=== PATIENT | female | born 1940 | race Caucasian/White ===

== ENCOUNTER → 2016-08-08 10:05 | Day surgery (SDC) | payer MEDICARE ==
[~2016-08-08 10:05] MED LIST: Acetaminophen TAB* 325 MG PO PRN; Buffered Lidocaine 1% SYRIN* 3 ML/SYR SYRINGE INTRADERM ONE; Cyclopentolate 1% OPTH.SOL* 2 ML BTL ONE; Flurbiprofen 0.03% OPTH.SOL* 2.5 ML BTL ONE; Lidocaine 1% MPF* 2 ML VIAL ONE; Midazolam* 1 MG/ML 2 ML VIAL (2 MG) ONE; Neomycin/Polymy/Dex OPHTH.OIN* 3.5 GM ONE; Phenylephrine 2.5% OPTH.SOL* 2 ML BTL ONE; Tetracaine 0.5% OPTH.SOL 4 ML* 1 DROP BTL ONE; Tropicamide 1% OPTH.SOL* BTL ONE; fentaNYL* 50 MCG/ML 2 ML VIAL (100 MCG VIAL) ONE
[2016-08-08 12:34] VITALS: BP 149/72
--- NOTE | 2016-08-08 16:38 | OP ---
DATE OF OPERATION/DATE OF DICTATION: 08/08/2016 - [facility] DATE OF : 1940. SURGEON: Dr. Fabio Doulgas. DESIGN TECH: None. ANESTHESIOLOGIST: Edinson Saunders MD ANESTHESIA: Topical with intravenous sedation. PRE-OP DIAGNOSIS: Cataract, left eye. POST-OP DIAGNOSIS: Cataract, left eye. OPERATIVE PROCEDURE: Phacoemulsification and cataract extraction with posterior chamber intraocular lens implant, left eye. COMPLICATIONS: None. BLOOD LOSS: None. DESRIPTION OF PROCEDURE: The patient was brought to the operating room and received a small amount of intravenous sedation. A drop of Tetracaine was placed in her left eye. She was prepped and draped in the usual sterile fashion for ophthalmic surgery and attention was directed to the left eye where a speculum was placed. A paracentesis was created at the 5 o'clock position and 0.1 cc of 1 percent preservative-free Lidocaine was injected into the anterior chamber followed by DisCoVisc. The eye was digitally stabilized while a 2.75 mm keratome was used to create a triplanar clear corneal incision at the 3 o'clock position. A continuous curvilinear capsulorrhexis was created with a cystotome and Utrata forceps. BSS on a cannula was used to hydrodissect the lens from the capsule. Phacoemulsification was performed in a divide-and- conquer technique to create four fragments which were removed. Residual cortical material was removed with irrigation and aspiration. DisCoVisc was used to inflate the capsular bag and an AUOOTO 19.0 diopter lens was folded and inserted into the capsular bag. DisCoVisc was removed using irrigation and aspiration. BSS on a cannula was used to hydrate the corneal stroma and seal the wound. At the end of the case the pupil was round and the lens was centered. The eye was of normal pressure and the wound was water tight. The speculum was removed and topical Maxitrol ointment was placed on the surface of the eye. The eye was closed, patched and shielded and the patient was sent to the recovery room in stable condition with post operative instructions and follow-up appointment given. [id number]/CPS #: [id number] [facility]ie
== END | disposition home or self-care (01) ==
LOC: OREAST 10:05
PROVIDERS: ATTEND Ophthalmology
DX: H25.12 Age-related nuclear cataract, left eye (principal); I10 Essential (primary) hypertension
CPT/HCPCS: J2250; J3010; V2632

== ENCOUNTER → 2016-08-15 07:28 | Day surgery (SDC) | payer MEDICARE ==
[~2016-08-15 07:28] MED LIST changes: -Cyclopentolate 1% OPTH.SOL* 2 ML BTL ONE; -Flurbiprofen 0.03% OPTH.SOL* 2.5 ML BTL ONE; -Lidocaine 1% MPF* 2 ML VIAL ONE; -Midazolam* 1 MG/ML 2 ML VIAL (2 MG) ONE; +Midazolam* 1 MG/ML 5 ML VIAL (5 MG) ONE; -Neomycin/Polymy/Dex OPHTH.OIN* 3.5 GM ONE; -Phenylephrine 2.5% OPTH.SOL* 2 ML BTL ONE; -Tetracaine 0.5% OPTH.SOL 4 ML* 1 DROP BTL ONE; -Tropicamide 1% OPTH.SOL* BTL ONE
[2016-08-15 09:45] VITALS: BP 139/79
--- NOTE | 2016-08-16 00:42 | OP ---
DATE OF OPERATION: 08/15/16 [facility] DATE OF : 38 SURGEON: Dr. Fabio Douglas. RETAIL ASSOCIATE MANAGER BILINGUAL: None. ANESTHESIOLOGIST: Edinson Saunders MD ANESTHESIA: Topical with intravenous sedation. PRE-OP DIAGNOSIS: Cataract, right eye. POST-OP DIAGNOSIS: Cataract, right eye. OPERATIVE PROCEDURE: Phacoemulsification and cataract extraction with posterior chamber intraocular lens implant, right eye. COMPLICATIONS: None. BLOOD LOSS: None. DESCRIPTION OF PROCEDURE: The patient was brought to the operating room and received a small amount of intra-venous sedation. A drop of Tetracaine was placed in her right eye. She was prepped and draped in the usual sterile fashion for ophthalmic surgery and attention was directed to the right eye where a speculum was placed. A paracentesis was created at the 11 o'clock position and 0.1 cc of 1 percent preservative-free Lidocaine was injected into the anterior chamber followed by DisCoVisc. The eye was digitally stabilized while a 2.75 mm keratome was used to create a triplanar clear corneal incision at the 9 o'clock position. A continuous curvilinear capsulorrhexis was created with a cystotome and Utrata forceps. BSS on a cannula was used to hydrodissect the lens from the capsule. Phacoemulsification was performed in a divide-and- conquer technique to create four fragments which were removed. Residual cortical material was removed with irrigation and aspiration. DisCoVisc was used to inflate the capsular bag and an AU00T0 17.5 diopter lens was folded and inserted into the capsular bag. DisCoVisc was removed using irrigation and aspiration. BSS on a cannula was used to hydrate the corneal stroma and seal the wound. At the end of the case the pupil was round and the lens was centered. The eye was of normal pressure and the wound was water tight. The speculum was removed and topical Maxitrol ointment was placed on the surface of the eye. The eye was closed, patched and shielded and the patient was sent to the recovery room in stable condition with post operative instructions and follow-up appointment given. [id number]/CPS #: [id number] MTDD
== END | disposition home or self-care (01) ==
LOC: OREAST 07:28
PROVIDERS: ATTEND Ophthalmology
DX: H25.11 Age-related nuclear cataract, right eye (principal); I10 Essential (primary) hypertension
CPT/HCPCS: J2250; J3010; V2632

== ENCOUNTER 2017-04-29 18:59 | Emergency (ER) | payer MEDICARE ==
[2017-04-29] MEDS ORDERED: NS 0.9% 1000 ML* 2,000 ML IV ONE (19:23)
[2017-04-29] MEDS ORDERED: Ondansetron INJ* 2 MG/ML VIAL IV ONE (19:23)
[2017-04-29 20:08] LABS: Hematocrit 28 % (35-47); Hemoglobin 9.8 g/dl (12.0-16.0); Mean Corpuscular HGB Conc 35 g/dl (31-36); Mean Corpuscular Hemoglobin 32 pg (27-31); Mean Corpuscular Volume 91 fL (80-97); Mean Platelet Volume 7 um3 (7.4-10.4); Red Blood Count 3.12 10^6/ul (4.0-5.4); Red Cell Distribution Width 13 % (10.5-15); White Blood Count 11.3 10^3/ul (3.5-10.8)
--- NOTE | 2017-04-29 20:14 | RAD ---
Indication: Syncope, seizure. CT of the cervical spine was obtained in the axial plane. Ventricular structures are midline. No midline shift is noted. The extra-axial spaces are unremarkable. There is no evidence of intracranial mass or hemorrhage. No other high or low density lesions are identified. 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 Mastoid air cells and paranasal sinuses are otherwise unremarkable. IMPRESSION: No intracranial mass or hemorrhage is noted.
--- NOTE | 2017-04-29 20:14 | RAD ---
Indication: Syncope. Single frontal view of the chest performed at 1948 hours was reviewed. No prior study is available for comparison. No mediastinal shift is noted. Heart is of normal size and configuration. Lung chapman appear clear. IMPRESSION: NO ACTIVE CARDIOPULMONARY DISEASE IS NOTED.
[2017-04-29 20:29] LABS: Albumin 3.8 g/dL (3.2-5.2); C Reactive Protein 15.37 mg/L (< 5.00); Calcium 9.2 mg/dL (8.6-10.3); EGFR African American 102.7 (>60); EGFR Non-African American 79.8 (>60); Globulin 2.3 g/dL (2-4); Magnesium 1.6 mg/dL (1.9-2.7); Total Bilirubin 0.6 mg/dL (0.2-1.0); Total Protein 6.1 g/dL (6.4-8.9)
[2017-04-29 20:39] LABS: Troponin I 0.02 ng/mL (<0.04)
[2017-04-29 20:53] LABS: TSH (Thyroid Stimulating Horm) 3.46 mcIU/mL (0.34-5.60)
[2017-04-29] MEDS ORDERED: Pantoprazole IV* 40 MG IV ONE (21:52)
[2017-04-29] MEDS ORDERED: Magnesium Sulfate 2 GM IV* 2 GM/50 ML BAG IVPB ONE (21:52)
[2017-04-29] MEDS ORDERED: Pantoprazole IV* 80 MG in NS 0.9% 100 ML* 100 ML IVPB SCH (22:00)
[2017-04-29] MEDS ORDERED: NS 0.9% 1000 ML* 1,000 ML IV SCH (22:00)
--- NOTE | 2017-04-29 22:17 | ED ---
Leander Sheehan Tecjoon, scribed for Puneet Donovan MD on 04/29/17 at 1925 . Syncope/Near Syncope - HPI Summary HPI Summary: This patient is a 76 year old female BIBA to [facility] accompanied by family with a chief complaint of syncope since around an hour ago. Patients granddaughter states that she was sitting in her chair when she passed out and underwent convulsions and could not speak. After recovering, she underwent a second episode. Symptoms aggravated by nothing. Symptoms alleviated by nothing Patient additionally reports nausea, fever, diaphoresis, abd pain, diarrhea, dry heaves , weakness, lightheadedness. Patient denies headache, sore throat, bodyache, rhinorrhea, SOB, vomiting. Patient notes that she had a similar episode yesterday as well. - History Of Current Complaint Chief Complaint: EDSyncope Time Seen by Provider: 04/29/17 19:10 Hx Obtained From: Patient Onset/Duration: Sudden Onset Timing: Intermittent Episode Lasting - couple minutes Context: Witnessed - by granddaughter Aggravating Factor(s): Nothing Alleviating Factor(s): Nothing Associated Signs And Symptoms: Negative - headache, sore throat, bodyache, rhinorrhea, SOB, vomiting, Other - nausea, fever, diaphoresis, abd pain, diarrhea, dry heaves, weakness, lightheadedness Frequency: Episodes x___ - 2 - Allergies/Home Medications Allergies/Adverse Reactions: Allergies Allergy/AdvReac Type Severity Reaction Status Date / Time Adhesive Tape Allergy Hives Verified 08/15/16 07:50 Latex Allergy Hives Verified 08/15/16 07:50 Meperidine [From Demerol HCl] Allergy Hives Verified 08/15/16 07:50 Penicillins [PCN] Allergy Hives Verified 08/15/16 07:50 vaccines with egg proteins Allergy Hives Uncoded 08/15/16 07:50 PMH/Surg Hx/FS Hx/Imm Hx Previously Healthy: No Cardiovascular History: Reports: Hx Hypertension - CONTROLLED WITH MEDICATION GI History: Reports: Hx Hiatal Hernia - RESOLVED Musculoskeletal History: Reports: Hx Arthritis - RIGHT KNEE Sensory History: Reports: Hx Cataracts, Hx Contacts or Glasses - READING GLASSES Denies: Hx Hearing Aid Opthamlomology History: Reports: Hx Cataracts, Hx Contacts or Glasses - READING GLASSES Psychiatric History: Reports: Hx Depression - CONTROLLED WITH MEDICATION - Cancer History Hx Chemotherapy: Yes - BREAST Hx Radiation Therapy: Yes - BREAST - Surgical History Surgery Procedure, Year, and Place: 1976 HYSTERECTOMY. 1995 LUMPECTOMY Hx Anesthesia Reactions: No Infectious Disease History: No Infectious Disease History: Denies: Traveled Outside the [place] in Last 30 Days - Family History Known Family History: Positive: Other - CVA Negative: Cardiac Disease - CHF - Social History Lives: With Family Alcohol Use: Weekly Alcohol Amount: 2 GLASSES A WEEK Hx Substance Use: No Substance Use Type: Reports: None Hx Tobacco Use: No Smoking Status (MU): Never Smoked Tobacco Review of Systems Positive: Fever, Skin Diaphoresis Negative: Sore Throat, Nasal Discharge Negative: Shortness Of Breath Positive: Abdominal Pain, Diarrhea, Nausea, Other - dry heaves. Negative: Vomiting Musculoskeletal: Negative - bodyache Neurological: Other - lightheadedness Positive: Weakness, Syncope. Negative: Headache All Other Systems Reviewed And Are Negative: Yes Physical Exam - Summary Physical Exam Summary: General: well-appearing, no pain distress Skin: warm, color reflects adequate perfusion, dry Head: normal Eyes: EOMI, DENY ENT: normal Neck: supple, nontender Respiratory: CTA, breath sounds present Cardiovascular: RRR Abdomen: soft, nontender Bowel: present Musculoskeletal: normal, strength/ROM intact Neurological: normal, sensory/motor intact, A&O x3 Psychological: affect/mood appropriate Triage Information Reviewed: Yes Vital Signs On Initial Exam: Initial Vitals Temp Pulse Resp BP Pulse Ox 96.9 F 80 16 134/71 99 04/29/17 19:11 04/29/17 19:11 04/29/17 19:11 04/29/17 19:11 04/29/17 19:11 Vital Signs Reviewed: Yes Diagnostics - Vital Signs Vital Signs Temp Pulse Resp BP Pulse Ox 04/29/17 19:11 96.9 F 80 16 134/71 99 - Laboratory Lab Results: Lab Results 04/29/17 04/29/17 04/29/17 Range/Units 19:55 19:55 19:55 WBC 11.3 H (3.5-10.8) 10^3/ul RBC 3.12 L (4.0-5.4) 10^6/ul Hgb 9.8 L (12.0-16.0) g/dl Hct 28 L (35-47) % MCV 91 (80-97) fL MCH 32 H (27-31) pg MCHC 35 (31-36) g/dl RDW 13 (10.5-15) % Plt Count 267 (150-450) 10^3/ul MPV 7 L (7.4-10.4) um3 Neut % (Auto) 82.9 (38-83) % Lymph % (Auto) 11.5 L (25-47) % Andrew % (Auto) 3.7 (1-9) % Eos % (Auto) 1.2 (0-6) % Baso % (Auto) 0.7 (0-2) % Absolute Neuts (auto) 9.3 H (1.5-7.7) 10^3/ul Absolute Lymphs (auto) 1.3 (1.0-4.8) 10^3/ul Absolute Monos (auto) 0.4 (0-0.8) 10^3/ul Absolute Eos (auto) 0.1 (0-0.6) 10^3/ul Absolute Basos (auto) 0.1 (0-0.2) 10^3/ul Absolute Nucleated RBC 0 10^3/ul Nucleated RBC % 0 INR (Anticoag Therapy) 1.02 (0.77-1.02) APTT 25.5 L (26.0-36.3) seconds Sodium (133-145) mmol/L Potassium (3.5-5.0) mmol/L Chloride (101-111) mmol/L Carbon Dioxide (22-32) mmol/L Anion Gap (2-11) mmol/L BUN (6-24) mg/dL Creatinine (0.51-0.95) mg/dL Est GFR ( Amer) (>60) Est GFR (Non-Af Amer) (>60) BUN/Creatinine Ratio (8-20) Glucose (70-100) mg/dL Lactic Acid (0.5-2.0) mmol/L Calcium (8.6-10.3) mg/dL Magnesium (1.9-2.7) mg/dL Total Bilirubin (0.2-1.0) mg/dL AST (13-39) U/L ALT (7-52) U/L Alkaline Phosphatase (34-104) U/L Total Creatine Kinase (10-223) U/L Troponin I (<0.04) ng/mL C-Reactive Protein (< 5.00) mg/L B-Natriuretic Peptide 17 ( - 100) pg/mL Total Protein (6.4-8.9) g/dL Albumin (3.2-5.2) g/dL Globulin (2-4) g/dL Albumin/Globulin Ratio (1-3) TSH (0.34-5.60) mcIU/mL Influenza A (Rapid) (Negative) Influenza B (Rapid) (Negative) Blood Type Antibody Screen 04/29/17 04/29/17 04/29/17 Range/Units 19:55 19:55 19:59 WBC (3.5-10.8) 10^3/ul RBC (4.0-5.4) 10^6/ul Hgb (12.0-16.0) g/dl Hct (35-47) % MCV (80-97) fL MCH (27-31) pg MCHC (31-36) g/dl RDW (10.5-15) % Plt Count (150-450) 10^3/ul MPV (7.4-10.4) um3 Neut % (Auto) (38-83) % Lymph % (Auto) (25-47) % Andrew % (Auto) (1-9) % Eos % (Auto) (0-6) % Baso % (Auto) (0-2) % Absolute Neuts (auto) (1.5-7.7) 10^3/ul Absolute Lymphs (auto) (1.0-4.8) 10^3/ul Absolute Monos (auto) (0-0.8) 10^3/ul Absolute Eos (auto) (0-0.6) 10^3/ul Absolute Basos (auto) (0-0.2) 10^3/ul Absolute Nucleated RBC 10^3/ul Nucleated RBC % INR (Anticoag Therapy) (0.77-1.02) APTT (26.0-36.3) seconds Sodium 131 L (133-145) mmol/L Potassium 3.0 L (3.5-5.0) mmol/L Chloride 96 L (101-111) mmol/L Carbon Dioxide 27 (22-32) mmol/L Anion Gap 8 (2-11) mmol/L BUN 49 H (6-24) mg/dL Creatinine 0.71 (0.51-0.95) mg/dL Est GFR ( Amer) 102.7 (>60) Est GFR (Non-Af Amer) 79.8 (>60) BUN/Creatinine Ratio 69.0 H (8-20) Glucose 128 H (70-100) mg/dL Lactic Acid 2.0 (0.5-2.0) mmol/L Calcium 9.2 (8.6-10.3) mg/dL Magnesium 1.6 L (1.9-2.7) mg/dL Total Bilirubin 0.60 (0.2-1.0) mg/dL AST 21 (13-39) U/L ALT 14 (7-52) U/L Alkaline Phosphatase 37 (34-104) U/L Total Creatine Kinase 212 (10-223) U/L Troponin I 0.02 (<0.04) ng/mL C-Reactive Protein 15.37 H (< 5.00) mg/L B-Natriuretic Peptide ( - 100) pg/mL Total Protein 6.1 L (6.4-8.9) g/dL Albumin 3.8 (3.2-5.2) g/dL Globulin 2.3 (2-4) g/dL Albumin/Globulin Ratio 1.7 (1-3) TSH 3.46 (0.34-5.60) mcIU/mL Influenza A (Rapid) (Negative) Influenza B (Rapid) (Negative) Blood Type O Positive Antibody Screen Pending 04/29/17 Range/Units 20:31 WBC (3.5-10.8) 10^3/ul RBC (4.0-5.4) 10^6/ul Hgb (12.0-16.0) g/dl Hct (35-47) % MCV (80-97) fL MCH (27-31) pg MCHC (31-36) g/dl RDW (10.5-15) % Plt Count (150-450) 10^3/ul MPV (7.4-10.4) um3 Neut % (Auto) (38-83) % Lymph % (Auto) (25-47) % Andrew % (Auto) (1-9) % Eos % (Auto) (0-6) % Baso % (Auto) (0-2) % Absolute Neuts (auto) (1.5-7.7) 10^3/ul Absolute Lymphs (auto) (1.0-4.8) 10^3/ul Absolute Monos (auto) (0-0.8) 10^3/ul Absolute Eos (auto) (0-0.6) 10^3/ul Absolute Basos (auto) (0-0.2) 10^3/ul Absolute Nucleated RBC 10^3/ul Nucleated RBC % INR (Anticoag Therapy) (0.77-1.02) APTT (26.0-36.3) seconds Sodium (133-145) mmol/L Potassium (3.5-5.0) mmol/L Chloride (101-111) mmol/L Carbon Dioxide (22-32) mmol/L Anion Gap (2-11) mmol/L BUN (6-24) mg/dL Creatinine (0.51-0.95) mg/dL Est GFR ( Amer) (>60) Est GFR (Non-Af Amer) (>60) BUN/Creatinine Ratio (8-20) Glucose (70-100) mg/dL Lactic Acid (0.5-2.0) mmol/L Calcium (8.6-10.3) mg/dL Magnesium (1.9-2.7) mg/dL Total Bilirubin (0.2-1.0) mg/dL AST (13-39) U/L ALT (7-52) U/L Alkaline Phosphatase (34-104) U/L Total Creatine Kinase (10-223) U/L Troponin I (<0.04) ng/mL C-Reactive Protein (< 5.00) mg/L B-Natriuretic Peptide ( - 100) pg/mL Total Protein (6.4-8.9) g/dL Albumin (3.2-5.2) g/dL Globulin (2-4) g/dL Albumin/Globulin Ratio (1-3) TSH (0.34-5.60) mcIU/mL Influenza A (Rapid) Negative (Negative) Influenza B (Rapid) Negative (Negative) Blood Type Antibody Screen Result Diagrams: 04/29/17 19:55 04/29/17 19:59 Lab Statement: Any lab studies that have been ordered have been reviewed, and results considered in the medical decision making process. - Radiology CXR Xray Interpretation: No Acute Changes - NO ACTIVE CARDIOPULMONARY DISEASE IS NOTED. ED physician has reviewed this radiology report. Radiology Interpretation Completed By: Radiologist - CT CT Brain CT Interpretation: No Acute Changes - IMPRESSION: No intracranial mass or hemorrhage is noted. ED physician has reviewed this radiology report. CT Interpretation Completed By: Radiologist - EKG 1944 Cardiac Rate: NL EKG Rhythm: Sinus Rhythm - [address] Segment: Normal Ectopy: None Course/Dx Course Of Treatment: Bloodwork Obtained. Urinalysis Obtained. Medication reviewed. Allergies noted. [place] [facility] [place]SF[place] AT [facility] BY DR LEAHY. DISCUSSED WITH [facility], DR SANTILLAN. TRANSFER STABLE. NO CRITICAL CARE TIME. - Diagnoses Provider Diagnoses: GI bleed, Syncope Discharge - Discharge Plan Condition: Stable Disposition: TRANS HIGHER LVL OF CARE FAC Referrals: Samantha Gates, CO DIRECTOR [Primary Care Provider] - The documentation as recorded by the Leander iqbal Tecjoon accurately reflects the service I personally performed and the decisions made by , Puneet Donovan MD.
[2017-04-29] MEDS ORDERED: Potassium Chlor TAB* 20 MEQ TAB.ER PO ONE (22:47)
[2017-04-30 00:24] LABS: Urine Bilirubin Negative (Negative); Urine Glucose Negative (Negative); Urine Nitrite Negative (Negative)
[2017-04-30 01:50] VITALS: BP 113/74
== END 2017-04-30 01:50 | disposition short-term general hospital (02) ==
LOC: ED 18:59
DX: R55 Syncope and collapse (principal); K92.2 Gastrointestinal hemorrhage, unspecified; Z88.5 Allergy status to narcotic agent; Z88.0 Allergy status to penicillin; Z88.7 Allergy status to serum and vaccine; Z91.012 Allergy to eggs
CPT/HCPCS: 36415; 70450; 71010; 80053; 81003; 82270; 82550; 83605; 83735; 83880; 84443; 84484; 85025; 85610; 85730; 86140; 86850; 86900; 86901; 87502; 93005; 96365; 96375; 99285; A9270-GY; J2405; J3475

== ENCOUNTER 2018-12-05 05:53 | Observation (INO) | payer MEDICARE ==
--- NOTE | 2018-11-25 14:00 | HP ---
PREOPERATIVE HISTORY AND PHYSICAL: DATE OF SURGERY/ADMISSION: 12/05/18 DATE OF OFFICE VISIT: 11/25/18 ATTENDING PHYSICIAN: Dr. Miladis Trujillo.* (DICTATED BY TARIK ANTHONY) PROCEDURE SCHEDULED: Right total knee arthroplasty. CHIEF COMPLAINT: Right knee pain. HISTORY OF PRESENT ILLNESS: Ms. Lozada is a 77-year-old female with over 10 years of right knee pain. She has pain along the medial aspect of her knee and has difficulty walking even 1 block. She has difficulty with prolonged standing and climbing. She has tried physical therapy, antiinflammatories, rest , ice, and weight loss. Cortisone injections have not been helpful. She has also used a cane. She now elects to proceed with right total knee arthroplasty. PAST MEDICAL HISTORY: Significant for hypertension, high cholesterol, osteoarthritis, GERD, anxiety, history of GI bleed in 2017. PAST SURGICAL HISTORY: Hysterectomy, right-sided breast lumpectomy, and cataract surgery. MEDICATIONS: 1. Tramadol 50 mg 1 p.o. t.i.d. p.r.n. for pain. 2. Voltaren Gel apply to affected area 4 times daily. 3. Cimetidine 20 mg 1 tablet twice daily. 4. Potassium chloride extended release 20 mEq 1 p.o. daily. 5. Lexapro 10 mg p.o. daily. 6. Acidophilus 400 mg daily. 7. Vitamin D3 at 2000 units daily. 8. Vitamin B complex 500 mg 1 p.o. daily. 9. CoQ10 at 200 mg daily. 10. Turmeric 500 mg daily. 11. Multivitamin daily. 12. Hydrochlorothiazide 25 mg 1 p.o. daily. 13. Atenolol 50 mg 1 p.o. daily. ALLERGIES: PENICILLIN and SULFA, which both give rash and hives. DEMEROL made her feel itchy. She has a reaction to flu virus vaccine and ZOSTAVAX. LIPITOR is also listed as an allergy. FAMILY HISTORY: Paternal side with heart disease. Maternal side heart disease , stroke, and cancer. SOCIAL HISTORY: The patient lives alone. She is retired. She does not use tobacco or recreational drugs. Two alcoholic beverages per week. Active with walking daily. REVIEW OF SYSTEMS: Positive for right knee pain and swelling. Easy bleeding and bruising. Negative for recent loss of consciousness, lightheadedness, dizziness, chest pain, palpitations, gastrointestinal or genitourinary discomfort. PHYSICAL EXAMINATION GENERAL: She is a well-developed, well-nourished 77-year-old female, in no acute distress. VITAL SIGNS: Today, height 67 inches, weight 197. Pulse 60, BP 138/92. HEENT: PERRLA, EOMI. LUNGS: Clear to auscultation without wheeze. HEART: Regular rate and rhythm. No murmur auscultated. ABDOMEN: Soft, nontender, and nondistended. Normoactive bowel sounds x4 quadrants. MUSCULOSKELETAL: The right knee shows no abrasions or open wounds. She has a 20- degree valgus deformity, moderate effusion with tenderness along the medial and lateral joint lines. No significant varus or valgus instability; 5 degrees to 120 degrees flexion with patellofemoral pain. Her calf is nontender and soft. She has 5/5 active dorsiflexion and plantarflexion strength. Full sensation distally with a 2+ dorsalis pedis pulse. LABORATORY STUDIES: Studies reveal valgus deformity with [id number] contact in both the lateral and patellofemoral compartments, noted osteophyte formation and subchondral sclerosis noted. IMPRESSION: Advanced osteoarthritis, right knee. PLAN/RECOMMENDATIONS: The patient is scheduled to undergo a right total knee arthroplasty with Dr. Miladis Trujillo on 12/05/18. She has been cleared for surgery. She wore a Holter monitor last week and was found to have normal results from that. She elected to proceed with surgery. All questions, risks, and benefits of the procedure were fully discussed by Dr. Trujillo today at the office visit. She will follow up in roughly 10 to 14 days postoperatively for her first postoperative visit. TARIK ANTHONY [id number]/[facility] #: [id number] ANT
[~2018-12-05 05:53] MED LIST changes: -Acetaminophen TAB* 325 MG PO PRN; +Buffered Lidocaine 1% SYRIN* 1 ML/SYRINGE INTRADERM ONE; -Buffered Lidocaine 1% SYRIN* 3 ML/SYR SYRINGE INTRADERM ONE; -Midazolam* 1 MG/ML 5 ML VIAL (5 MG) ONE; +Tranexamic Acid 1,000 MG in NS 0.9% 50 ML* (outpatient use) IV SCH; -fentaNYL* 50 MCG/ML 2 ML VIAL (100 MCG VIAL) ONE
[2018-12-05] MEDS ORDERED: Acetaminophen TAB* 325 MG PO ONE (06:00)
[2018-12-05] MEDS ORDERED: Lactated Ringers 1000 ML Bag* 1,000 ML IV SCH (06:00)
[2018-12-05] MEDS ORDERED: Gabapentin CAP(*) 300 MG PO ONE (06:00)
[2018-12-05] MEDS ORDERED: Ibuprofen TAB* 600 MG PO ONE (06:00)
[2018-12-05] MEDS ORDERED: Acetaminophen TAB* 325 MG ONE (06:05)
[2018-12-05] MEDS ORDERED: Buffered Lidocaine 1% SYRIN* 1 ML/SYRINGE INTRADERM ONE (06:05)
[2018-12-05] MEDS ORDERED: Ibuprofen TAB* 600 MG ONE (06:05)
[2018-12-05] MEDS ORDERED: ceFAZolin 2 GM in NS PREMIX(*) 2 GM/100 ML BAG IVPB ONE (06:05)
[2018-12-05] MEDS ORDERED: Gabapentin CAP(*) 300 MG ONE (06:06)
[2018-12-05] MEDS ORDERED: Bupivacaine 0.5%* 50 ML VIAL ONE (06:33)
[2018-12-05] MEDS ORDERED: Ropivacaine 0.2% * 2 MG/ML VIAL ONE (06:54)
[2018-12-05] MEDS ORDERED: Lidocaine 2% PF * 5 ML VIAL ONE ×2 (06:55→08:30)
[2018-12-05] MEDS ORDERED: fentaNYL* 50 MCG/ML 2 ML VIAL (100 MCG VIAL) ONE (06:55)
[2018-12-05] MEDS ORDERED: Bupivacaine 0.5% SDV PF* 30ML VIAL ONE (06:55)
[2018-12-05] MEDS ORDERED: Midazolam* 1 MG/ML 10 ML VIAL (10 MG) ONE (06:55)
[2018-12-05] MEDS ORDERED: Propofol* 10 MG/ML 20 ML BTL ONE ×3 (06:55→12:50)
[2018-12-05] MEDS ORDERED: ROPIVACAINE 5 MG/ML 30 ML BTL (0.5%) ONE ×2 (06:55→06:56)
[2018-12-05] MEDS ORDERED: Ondansetron INJ* 2 MG/ML VIAL ONE (06:55)
[2018-12-05] MEDS ORDERED: Dexamethasone IV* 4 MG/ML 1 ML (4 MG) ONE (06:55)
[2018-12-05] MEDS ORDERED: Sodium Chloride 0.9%* 20 ML ONE (06:56)
[2018-12-05] MEDS ORDERED: KETAMINE HCL* 50 MG/ML 10 ML VIAL ONE (06:56)
[2018-12-05] MEDS ORDERED: DiMENhydriNATE IV* 50 MG/ML VIAL ONE (08:25)
[2018-12-05] MEDS ORDERED: Phenylephrine 10 MG/ML VIAL* 1 ML VIAL ONE ×2 (08:53→13:31)
[2018-12-05] MEDS ORDERED: Naloxone* 0.4 MG/ML 1 ML VIAL IV PRN (10:05)
[2018-12-05] MEDS ORDERED: fentaNYL* 50 MCG/ML 2 ML VIAL (100 MCG VIAL) IV PRN (10:05)
[2018-12-05] MEDS ORDERED: Ondansetron INJ* 2 MG/ML VIAL IV PRN ×2 (10:05→10:53)
[2018-12-05] MEDS ORDERED: Polyethylene Glycol 3350* 17 GM PACKET PO PRN (10:53)
[2018-12-05] MEDS ORDERED: Morphine INJ* 2 MG/ML 1 ML SYRINGE (TWO MG - NEW SYRINGE VERSION) IV PRN (10:53)
[2018-12-05] MEDS ORDERED: oxyCODONE/Acetamin 5/325 MG* TAB PO PRN ×2 (10:53→11:04)
[2018-12-05] MEDS ORDERED: Magnesium Hydroxide LIQ* 30 ML UDC PO PRN (10:53)
[2018-12-05] MEDS ORDERED: diPHENhydraMINE IV* 50 MG/ML 1 ml VIAL (BENADRYL) IV PRN (10:53)
[2018-12-05] MEDS ORDERED: diPHENhydraMINE PO* 25 MG PO PRN (10:53)
[2018-12-05] MEDS ORDERED: Bisacodyl SUPP* 10 MG SUPP PR PRN (10:53)
[2018-12-05] MEDS ORDERED: Cyclobenzaprine TAB* 10 MG PO PRN (10:53)
[2018-12-05] MEDS: Lactated Ringers 1000 ML Bag* 1,000 ML IV SCH ×2 (12:52→23:02)
--- NOTE | 2018-12-05 13:55 | PN ---
Progress Note - Progress Note Date of Service: 12/05/18 - Post-op Note: Patient is resting comfortably in bed. She denies CP, SOB or calf pain. She is beginning to have feeling in her feet again and can actively dorsi flex and plantar flex. She has 2+ DP pulse. I reviewed getting the knee as straight and as bent as she can. Continue PT and we will continue to monitor.
[2018-12-05] MEDS: Acetaminophen TAB* 325 MG PO SCH ×2 (14:50→22:59)
[2018-12-05] MEDS: Clindamycin 600 MG IVPREMIX(* 600 MG/50 ML SDV IV SCH (17:13)
[2018-12-05] MEDS: traMADol TAB* 50 MG PO PRN ×2 (17:13→23:00)
[2018-12-05] MEDS ORDERED: Escitalopram * 10 MG TAB PO SCH (18:00)
--- NOTE | 2018-12-05 19:19 | PN ---
Subjective Date of Service: 12/05/18 Interval History: CONSULT NOTE Date of Admission: 12/05/18 Date of Consult: 12/05/18 Primary Care Provider: Priscilla Gates NP Requesting Physician in Consult: Dr Trujillo Attending Physician: Dr Smith Reason for Consult: Co - medical management of HTN HPI: Please see Dr Trujillo's History and Physical. Ms. Lozada has pmh of htn, hld, oa, gerd, anxiety, and gi bleed. Patient presented to [facility] for elective Right total knee replacement. Past Medical Hx: 1. Htn 2. Hld 3. OA 4. GERD 5. Anxiety 6. Hx of GI bleed. Past Surgical Hx: 1. Hysterectomy 2. Right sided breast lumpectomy 3. Cataract Surgery Medications: Home medications reviewed with patient and Med Rec updated accordingly. Allergies: PCN, Sulfa, Demerol, Zostavax, Lipitor. Family History: Findings - Mom at 94 yrs old and had hx of stroke and CHF. Dad at 72 of [place] and had hx of CAD. No siblings. Social History: Findings - Lives alone. Indep in ADLs. No tobacco use. No drug use. 2 glasses of wine per week. Surrogate decision maker Josh Richards (son) Objective Active Medications: Acetaminophen (Tylenol Tab*) 975 mg PO Q8H [facility] Last Admin: 12/05/18 14:50 Dose: 975 mg Apixaban (Eliquis*) 2.5 mg PO BID [facility] Atenolol (Tenormin Tab*) 50 mg PO QAM [facility] Bisacodyl (Dulcolax Supp*) 10 mg [place] DAILY PRN PRN Reason: constipation Cyclobenzaprine HCl (Flexeril Tab*) 10 mg PO TID PRN PRN Reason: SPASMS Diphenhydramine HCl (Benadryl Iv*) 25 mg IV Q6H PRN PRN Reason: itching Diphenhydramine HCl (Benadryl Po*) 25 mg PO Q6H PRN PRN Reason: INSOMNIA Docusate Sodium (Colace Cap*) 100 mg PO BID [facility] Escitalopram Oxalate (Lexapro *) 10 mg PO QPM [facility] Last Admin: 12/05/18 18:40 Dose: 10 mg Famotidine (Pepcid Tab*) 20 mg PO BID [facility] Tranexamic Acid 1,000 mg/ (Sodium Chloride) 60 mls @ 120 mls/hr IV ONCE Stop: 12/05/18 23:59 Clindamycin HCl/Dextrose (Cleocin 600 Mg Ivpremix(*) Sdv) 600 mg in 50 mls @ 100 mls/hr IV Q8H [facility] Stop: 12/06/18 08:59 Last Admin: 12/05/18 17:13 Dose: 100 mls/hr Lactated Ringer's (Lactated Ringers 1000 Ml Bag*) 1,000 mls @ 100 mls/hr IV PER RATE [facility] Last Admin: 12/05/18 12:52 Dose: 100 mls/hr Lactulose (Lactulose*) 30 ml PO Q6H PRN PRN Reason: constipation Magnesium Hydroxide (Milk Of Magnesia Liq*) 30 ml PO BID [facility] Magnesium Hydroxide (Milk Of Magnesia Liq*) 30 ml PO Q6H PRN PRN Reason: constipation Morphine Sulfate (Morphine Inj (Syringe))*) 2 mg IV Q2H PRN PRN Reason: PAIN Multivitamins ( Vitamin Tab*) 1 tab PO DAILY [facility] Ondansetron HCl (Zofran Inj*) 4 mg IV Q6H PRN PRN Reason: nausea Oxycodone HCl (Roxycodone Tab*) 10 mg PO Q4H PRN PRN Reason: breakthru pain Oxycodone/Acetaminophen (Percocet 5/325 Tab*) 2 tab PO Q3H PRN PRN Reason: PAIN - MODERATE Oxycodone/Acetaminophen (Percocet 5/325 Tab*) 1 tab PO Q3H PRN PRN Reason: PAIN - MODERATE Polyethylene Glycol/Electrolytes (Miralax*) 17 gm PO DAILY PRN PRN Reason: Constipation Potassium Chloride (Klor Con Er Tab*) 20 meq PO QAM [facility] Tramadol HCl (Ultram*) 50 mg PO Q6H PRN PRN Reason: PAIN Last Admin: 12/05/18 17:13 Dose: 50 mg Vital Signs - 8 hr 12/05/18 12/05/18 12/05/18 11:15 11:30 11:46 Temperature 97.2 F Pulse Rate 64 61 58 Respiratory 21 15 11 Rate Blood Pressure 153/82 146/81 147/83 (mmHg) O2 Sat by Pulse 100 100 100 Oximetry 12/05/18 12/05/18 12/05/18 12:00 12:01 12:16 Temperature Pulse Rate 62 58 51 Respiratory 14 15 12 Rate Blood Pressure 135/80 134/78 (mmHg) O2 Sat by Pulse 94 93 97 Oximetry 12/05/18 12/05/18 12/05/18 12:30 12:54 13:29 Temperature 97.4 F Pulse Rate 64 65 Respiratory 15 16 18 Rate Blood Pressure 120/71 144/75 (mmHg) O2 Sat by Pulse 99 100 Oximetry 12/05/18 12/05/18 12/05/18 13:54 14:57 15:19 Temperature 97.4 F 97.5 F Pulse Rate 64 62 Respiratory 16 16 Rate Blood Pressure 133/74 142/74 (mmHg) O2 Sat by Pulse 100 100 100 Oximetry 12/05/18 12/05/18 16:56 17:13 Temperature 97.3 F Pulse Rate 63 Respiratory 16 18 Rate Blood Pressure 116/61 (mmHg) O2 Sat by Pulse 100 Oximetry Oxygen Devices in Use Now: None Appearance: Comfortable, NAD Eyes: No Scleral Icterus Ears/Nose/Mouth/Throat: Clear Oropharnyx, Mucous Membranes Moist Neck: NL Appearance and Movements; NL JVP Respiratory: Symmetrical Chest Expansion and Respiratory Effort, Clear to Auscultation Cardiovascular: NL Sounds; No Murmurs; No JVD, RRR, No Edema Abdominal: NL Sounds; No Tenderness; No Distention Lymphatic: No Cervical Adenopathy Extremities: No Edema, No Clubbing, Cyanosis Skin: No Rash or Ulcers, - - Dressing to right knee CDI Neurological: Alert and Oriented x 3, NL Sensation, NL Muscle Strength and Tone Additional Lab and Data: . Microbiology and Other Data: . Assess/Plan/Problems-Billing Assessment: 77 yr old female with pmh of htn, hld, oa, gerd, anxiety, hx of bleed; presented to [facility] for elective Right Total Knee Replacement - Patient Problems (1) Status post total right knee replacement Comment: - POD 0 - Management per ortho (2) Hypertension Comment: - Normotensive - Continue Atenolol - Hold HCTZ (3) Hyperlipidemia Comment: - Not on statin - Defer to PCP (4) Osteoarthritis Comment: - Pain management per ortho - PT/OT (5) GERD (gastroesophageal reflux disease) Comment: - Continue Famotidine (6) Anxiety Comment: - Continue Lexapro (7) History of GI bleed Comment: - Not current issue - Supportive care (8) DVT prophylaxis Comment: - DVT proph per ortho - Eliquis Status and Disposition: Thank you for allowing us to participate in the care of this patient. We will follow along with you. Attending: Jonathan Smith
[2018-12-05] MEDS: Magnesium Hydroxide LIQ* 30 ML UDC PO SCH (19:26)
[2018-12-05] MEDS: oxyCODONE TAB* 5 MG TAB PO PRN (20:20)
[2018-12-05] MEDS: Docusate CAP* 100 MG PO SCH (20:20)
[2018-12-05] MEDS: Famotidine TAB* 20 MG PO SCH (20:20)
--- NOTE | 2018-12-05 20:55 | OP ---
Operative Report - Blank - Operative Report Date of Operation: 12/05/18 Note: LOVE WISE 1940 Date of Surgery: 12/05/18 Miladis Trujillo MD Guest Services Coordinator: Perry MONTANEZ did help throughout the procedure with preparation of the knee, wound retraction, manipulation of the knee, and wound closure. Anesthesiologist: Perry Fernandez MD Anesthesia Type: Spinal Preoperative Diagnosis: Right severe degenerative osteoarthritis of the knee with valgus deformity Postoperative Diagnosis: As above Procedure Performed: Right Total Knee Arthroplasty Tourniquet time: 44 minutes Complications: None Specimen: Bone and cartilage from the right knee joint sent to pathology. Hardware Used: Cemented Santana and Nephew total knee hardware was used - For the femur a size 6 narrow oxinium right legion posterior stabilized femoral component, for the tibia a size 5 right sandra II tibial baseplate, for the insert a size 11mm 5-6 constrained posterior stabilized articular polyethylene insert, and for the patella a size 35 3-peg all poly patella. Brief History/Indication: LOVE WISE was known in clinic and had a history of severe right knee pain and swelling. She failed conservative treatment with anti -inflammatories, pain pills, intra-articular injections and physical therapy. She elected to undergo right total knee arthroplasty due to continued pain and decreased quality of life. Radiographs showed severe end stage osteoarthritis of the knee with bone on bone contact. Informed consent was obtained from the patient. She understood the risks of surgery included but were not limited to: bleeding, infection, damage to nearby structures, intraoperative fracture, nerve palsy, failure of the hardware, early loosening, knee stiffness or loss of motion, anesthesia complications, stroke, heart attack, blood clot and . She wished to proceed. Intra-Operative Findings: Intraoperatively the patient was noted to have severe loss of cartilage in all 3 compartments of the knee. She had preoperative valgus deformity of 20 degrees and chronic laxity of the MCL. Description of the Procedure: LOVE WISE was identified in the preanesthesia unit. Her right knee was marked as the correct operative side. Informed consent was signed and placed in the chart. The patient was taken to the operating room and placed under anesthesia without complication. A beavers catheter was placed. A tourniquet was placed on the right thigh. The right lower extremity was prepped and draped in the usual sterile fashion. Preoperative time-out was made to correctly identify the patient, side and site. Appropriate intraoperative antibiotics were given within one hour of incision. Tourniquet was inflated. A midline incision was made and carried sharply down to the extensor mechanism. A new 10 blade was used to make a standard medial parapatellar arthrotomy. The patella was subluxed laterally. Electrocautery was used to dissect soft tissue off the superomedial tibia to the midsagittal plane. The knee was flexed up. The anterior horn of the lateral meniscus and the ACL were sharply incised. A drill was used to enter the distal femur. The intramedullary distal femoral cutting guide was pinned on the distal femur. The oscillating saw was used to make the distal femoral cut. The external rotation guide was pinned on the distal femur and the distal femur was sized to a size 6. The size 6 multi-cutting jig was pinned on the distal femur. The oscillating saw was used to make the appropriate 4 chamfer cuts. Next the PCL was completely released. The extramedullary tibial cutting guide was pinned on the proximal tibia and the oscillating saw was used to make the proximal tibial cut perpendicular to the mechanical axis of the tibia. The bone was carefully removed. The knee was brought out into full extension. The spacer block was placed and had excellent fit with the knee in full extension. The medial and lateral ligaments were well balanced. The flexion and extension gaps were well balanced. The knee was flexed up. Lamina numerologist was placed both medially and laterally. Any remaining meniscus was removed with electrocautery. Curved osteotome was used to remove any posterior osteophytes. The tibial tray and drop valorie were placed and confirmed a satisfactory tibial cut. The size 6 right narrow femoral trial was impacted onto the distal femur. This trial had excellent fit and stability. The box for the posterior stabilized implant was prepared using a box cut osteotome and a reamer. Next a tibial tray trial and 9 mm insert trial was placed. The knee was taken through a range of motion and had full extension to 130 degrees of flexion. Patellofemoral tracking was satisfactory. The patella was inverted and sized to a size 35. Three peg holes were drilled through the size 35 drill guide. The trial patella was placed and the knee was taken through a range of motion. There was satisfactory patellofemoral tracking. All trials were removed. The tibia was subluxed anteriorly and sized to a size 5. The proximal tibial was prepared with a size 5 keel punch. All bony cut surfaces were irrigated with sterile saline and dried. Final implants were cemented into place starting with the tibia, followed by the femur, and last the patella. A 9 mm insert trial was placed and the knee was brought into full extension. Tourniquet was turned down and the knee was copiously irrigated with sterile saline. Electrocautery was used to obtain meticulous hemostasis. Once the cement had fully cured, the insert trial was removed. Any excess cement was removed from around the hardware and capsule. Final insert chosen was a 11 mm posterior stabilized Sandra II articular insert size 5-6. The constrained insert was chosen because of the patient's MCL laxity. Stability of the insert was checked and noted to be stable. The extensor mechanism was closed using number 1 vicryls. The rest of the incision was closed in a layered fashion using 0 and 2-0 vicryls. The skin was closed using 3-0 nylon suture. Sterile xeroform, 4x4s and webril were used to cover the incision. Natan wrap and cold pack were used to cover the dressings. The patients anesthesia was reversed without difficulty. She was taken to the PACU in stable condition. Intended weight-bearing will be as tolerated.
[2018-12-06] MEDS: oxyCODONE TAB* 5 MG TAB PO PRN ×3 (00:14→08:48)
[2018-12-06] MEDS: Clindamycin 600 MG IVPREMIX(* 600 MG/50 ML SDV IV SCH ×2 (00:15→08:40)
[2018-12-06] MEDS: Acetaminophen TAB* 325 MG PO SCH (06:14)
[2018-12-06] MEDS: traMADol TAB* 50 MG PO PRN ×2 (06:15→12:16)
[2018-12-06 07:19] LABS: Hematocrit 30 % (35-47); Hemoglobin 10.3 g/dL (12.0-16.0); Mean Platelet Volume 6.8 fL (7.4-10.4); Platelet Count 240 10^3/uL (150-450)
[2018-12-06 07:32] LABS: Calcium 8.6 mg/dL (8.6-10.3); EGFR African American 89.1 (>60); EGFR Non-African American 73.6 (>60); Potassium 3.9 mmol/L (3.5-5.0)
[2018-12-06] MEDS: Docusate CAP* 100 MG PO SCH (08:40)
[2018-12-06] MEDS: Famotidine TAB* 20 MG PO SCH (08:40)
[2018-12-06] MEDS: Magnesium Hydroxide LIQ* 30 ML UDC PO SCH (08:40)
[2018-12-06] MEDS ORDERED: Apixaban* 2.5 MG TAB PO SCH (09:00)
[2018-12-06] MEDS ORDERED: Hydrochlorothiazide TAB* 25 MG PO SCH (09:00)
[2018-12-06] MEDS ORDERED: Atenolol TAB* 50 MG PO SCH (09:00)
[2018-12-06] MEDS ORDERED: Prenatal Vitamin TAB PO SCH (09:00)
[2018-12-06] MEDS ORDERED: Potassium Chlor TAB* 20 MEQ TAB.ER PO SCH (09:00)
[2018-12-06 11:16] VITALS: BP 107/53
--- NOTE | 2018-12-06 13:28 | DS ---
Orthopedic Discharge Summary - Discharge Summary Date of Admission:12/05/18 Date of Discharge: 12/06/18 Date of Surgery: 12/05/18 Attending Orthopedic Provider: Dr. Trujillo Pre-operative Diagnosis: Degenerative arthritis right knee Operative Procedure: Right total knee arthroplasty Disposition of Patient: home Condition of Patient: stable History: LOVE WISE is a 77 year old F with years of increasingly severe right knee pain. Patient has failed conservative management and has elected to undergo a right total knee replacement Hospital Course: LOVE was admitted to [facility] on 12/05/18. Patient underwent a right total knee replacement without complication followed by a brief recovery in PACU and transfer to the Short Stay Surgical Unit in stable condition. Our hospitalist service, physical therapy and occupational therapy also participated in this patients care. Post-op day 1: patient was alert and in no acute distress. Dressing was clean, dry and intact. Operative extremity dorsiflexion and plantarflexion intact, sensation intact to light touch distally, DP2+, dressing was changed, incision was clean, dry and intact. Patient was deemed to be medically and orthopedically stable for discharge. Physical therapy goals were met. Home Medications Medication Instructions Recorded Confirmed Type Atenolol TAB* [Tenormin TAB* 50 MG] 1 tab PO QAM 08/01/16 11/25/18 History Cholecalciferol (Vitamin D3) 2,000 unit PO QAM 08/01/16 11/25/18 History [Vitamin D3] Escitalopram Oxalate [Lexapro 10 1 tab PO QPM 08/01/16 11/25/18 History mg] Hydrochlorothiazide TAB* 1 tab PO QAM 08/01/16 11/25/18 History [Hydrodiuril TAB*] L.acidoph,Saliva/B.bif/S.therm 1 cap PO QAM 08/01/16 11/25/18 History [Acidophilus 175 mg Capsule] Ubidecarenone [Co Q-10] 1 cap PO QAM 08/01/16 11/25/18 History Vitamin B Complex CAP* [B Complex 1 cap PO QAM 08/01/16 11/25/18 History CAP*] Famotidine TAB* [Pepcid 20 MG TAB*] 20 mg PO BID 11/25/18 11/25/18 History Lysine [l-Lysine] 500 mg PO DAILY 11/25/18 11/25/18 History Multivitamin [Multiple Vitamins] 1 tab PO DAILY 11/25/18 11/25/18 History Potassium Chlor TAB* [Potassium 20 meq PO QAM 11/25/18 11/25/18 History Chlor TAB 20 MEQ*] Turmeric Root Extract [Turmeric] 500 mg PO DAILY 11/25/18 11/25/18 History Apixaban* [Eliquis*] 2.5 mg PO BID #60 tab 12/06/18 Rx Docusate CAP* [Colace Cap*] 100 mg PO BID cap 12/06/18 Rx oxyCODONE/Acetamin 5/325 MG* 1 tab PO Q4H PRN #42 tab MDD 6 12/06/18 Rx [Percocet 5/325 TAB*] traMADol TAB* [Ultram*] 50 mg PO Q6H PRN tab 12/06/18 Rx Discharge Instructions following Orthopedic Surgery: Activity: * Weight Bearing as tolerated * Continue physical therapy and occupational therapy exercises as shown Wound care: * OK to shower on post-op day 3, no bathing, swimming, or submerging wound. * Use gentle soap, pat dry. Cover with gauze, IRENE wrap or tape. * Visiting home nurse to do wound checks. Call Orthopedic office for: * Increased drainage * Redness * Increased pain * Fever Go to ER with shortness of breath or chest pain. Diet: * Regular diet * Increase fluids and fiber to prevent constipation. * Continue to use stool softeners, call office if no bowel motion within 48 hours. Medications See Home Medication List in your packet for medications that you should take after discharge. DVT Prophylaxis: Eliquis Dosin.5 mg, 1 tab every 12 hours x 30 days Pain Control: Tramadol 50 mg q 6 hrs prn pain for breakthru pain, Percocet Dosin/325 mg 1 tabs by mouth every 4-6 hours as needed for pain. Maximum of 6 tabs per day. Please note that Percocet contains Tylenol (acetaminophen). Maximum daily dose of Tylenol is 4000 mg from all sources. Antibiotics are required prior to any dental work. FOLLOW UP: Follow up with Dr. Trujillo Within 10-14 days, call for appointment Please call our office with any questions or concerns ([phone])
== END 2018-12-06 14:25 | disposition home or self-care (01) ==
LOC: OR 05:53 → EDSTATUS 09:00 → INTOOBSV 13:25 → SSU 13:25
PROVIDERS: ADMIT Physician Assistant; ATTEND Orthopaedic Surgery Adult Reconstructive Orthopaedic Surgery
PROC: 0SRC069 Replacement of Right Knee Joint with Oxidized Zirconium on Polyethylene Synthetic Substitute, Cemented, Open Approach (ICD-10-PCS; principal; 2018-12-05 07:45)
DX: M17.11 Unilateral primary osteoarthritis, right knee (principal); I10 Essential (primary) hypertension; K21.9 Gastro-esophageal reflux disease without esophagitis; F41.9 Anxiety disorder, unspecified; E03.9 Hypothyroidism, unspecified; M25.562 Pain in left knee; Z79.899 Other long term (current) drug therapy; Z88.0 Allergy status to penicillin; Z88.8 Allergy status to other drugs, medicaments and biological substances; Z88.7 Allergy status to serum and vaccine
CPT/HCPCS: 36415; 80048; 85014; 85018; 85049; 88304; 88311; A9270-GY; C1776; G0378; G8978-GP-CJ; G8979-GP-CI; J0690; J1100; J1240; J2250; J2405; J2704; J2795; J3010; J3490

== ENCOUNTER 2019-12-16 06:23 | Inpatient (IN) ==
[~2019-12-16 06:23] MED LIST changes: +Buffered Lidocaine 1% SYRIN 1 ml INTRADERM ONE; -Buffered Lidocaine 1% SYRIN* 1 ML/SYRINGE INTRADERM ONE; +Lactated Ringers 1000 ml BAG 1,000 ML IV SCH; -Tranexamic Acid 1,000 MG in NS 0.9% 50 ML* (outpatient use) IV SCH
[2019-12-16] MEDS ORDERED: Midazolam 5 mg/5 ml VIAL 1 mg/ml 5 ml VIAL (5 mg) ONE (06:38)
[2019-12-16] MEDS ORDERED: Sterile Water for Inj 10 ML ONE (06:39)
[2019-12-16] MEDS ORDERED: Propofol 10 MG/ML 20 ML BTL ONE (06:39)
[2019-12-16] MEDS ORDERED: EPHEDrine (Pressors) 50 MG/ML VIAL ONE (06:39)
[2019-12-16] MEDS ORDERED: Phenylephrine IV 10 MG/ML 1 ml VIAL ONE (06:40)
[2019-12-16] MEDS ORDERED: Phenylephrine 40 mcg/mL 10mL (400mcg) SYRINGE ONE (06:40)
[2019-12-16] MEDS ORDERED: Rocuronium 50 mg VIAL 10 mg/ml 5 ml VIAL (50 mg) ONE (06:48)
[2019-12-16] MEDS ORDERED: ROPIVACAINE 5 MG/ML 30 ML BTL (0.5%) ONE (07:10)
[2019-12-16] MEDS ORDERED: Famotidine IV 10 MG/ML 2 ml VIAL (20 mg) IV SLOW PU ONE (07:20)
[2019-12-16] MEDS ORDERED: Famotidine IV 10 MG/ML 2 ml VIAL (20 mg) ONE (07:22)
[2019-12-16] MEDS ORDERED: Clindamycin 900 MG/D5W BAG 900 MG/50 ML BAG IVPB ONE (07:22)
[2019-12-16] MEDS ORDERED: Buffered Lidocaine 1% SYRIN 1 ml INTRADERM ONE (07:22)
[2019-12-16] MEDS ORDERED: Naloxone 0.4 mg VIAL 0.4 mg/ml 1 ml VIAL IV PRN (08:56)
[2019-12-16] MEDS ORDERED: HYDROmorphone 1 MG/1 ML SYRINGE IV PRN (08:56)
[2019-12-16] MEDS ORDERED: Ondansetron 4 mg VIAL 2 MG/ML 2 ml VIAL IV PRN ×2 (08:56→10:42)
[2019-12-16] MEDS ORDERED: fentaNYL 100 mcg/2 ml 50 MCG/ML VIAL IV PRN (08:56)
[2019-12-16] MEDS ORDERED: Morphine 2 MG/ML SYRINGE IV PRN (10:42)
[2019-12-16] MEDS ORDERED: oxyCODONE/Acetamin 5/325 mg TAB PO PRN (10:42)
[2019-12-16] MEDS ORDERED: diPHENhydraMINE 25 mg TAB PO PRN (10:42)
[2019-12-16] MEDS ORDERED: Lactulose 30 ml UDC PO PRN (10:42)
[2019-12-16] MEDS ORDERED: Ondansetron ODT 4 mg TAB 4 MG TAB PO PRN (10:42)
[2019-12-16] MEDS ORDERED: Magnesium Hydroxide LIQ 30 ML UDC PO PRN (10:42)
[2019-12-16] MEDS ORDERED: diPHENhydraMINE IV 50 MG/ML 1 ml VIAL (BENADRYL) IV PRN (10:42)
[2019-12-16] MEDS: Lactated Ringers 1000 ml BAG 1,000 ML IV SCH ×2 (12:00→22:51)
[2019-12-16] MEDS: Clindamycin 600 MG/D5W BAG 600 MG/50 ML BAG IV SCH ×2 (15:34→23:57)
[2019-12-16] MEDS: Magnesium Hydroxide LIQ 30 ML UDC PO SCH (21:32)
[2019-12-17 06:34] LABS: Hematocrit 25 % (35-47); Hemoglobin 8.7 g/dL (12.0-16.0); Mean Platelet Volume 6.4 fL (7.4-10.4); Platelet Count 248 10^3/uL (150-450)
[2019-12-17 06:50] LABS: BUN/Creatinine Ratio 36.2 (8-20); Calcium 8.2 mg/dL (8.6-10.3); EGFR African American 99.3 (>60); EGFR Non-African American 82.1 (>60); Potassium 3.9 mmol/L (3.5-5.0)
[2019-12-17] MEDS: Clindamycin 600 MG/D5W BAG 600 MG/50 ML BAG IV SCH (07:53)
[2019-12-17] MEDS: Magnesium Hydroxide LIQ 30 ML UDC PO SCH (07:54)
[2019-12-17] MEDS ORDERED: Vitamin THERAPEUTIC TAB PO SCH (09:00)
[2019-12-17] MEDS ORDERED: Cholecalciferol (VIT D3) 1,000 unit TAB PO SCH (09:00)
[2019-12-17 12:43] VITALS: BP 98/50
[2019-12-17 15:06] LABS: TSH Ultra Thyroid Stim Horm 6.84 mcIU/mL (0.34-5.60)
== END 2019-12-17 13:00 | disposition home health service (06) | DRG 470 ==
LOC: AA 06:23 → SSU 11:52
PROVIDERS: ADMIT Orthopaedic Surgery Adult Reconstructive Orthopaedic Surgery; ATTEND Orthopaedic Surgery Adult Reconstructive Orthopaedic Surgery